=== PATIENT | male | born 1960 | race Caucasian/White ===

== ENCOUNTER → 2017-08-06 | Outpatient (CLI) | payer MEDICARE ==
--- NOTE | 2017-08-06 16:44 | US ---
EXAMINATION TYPE: US kidneys/renal and bladder DATE OF EXAM: 08/06/2017 COMPARISON: NONE CLINICAL HISTORY: Chronic cystitis N30.20. EXAM MEASUREMENTS: Right Kidney: 11.3 x 5.6 x 5.3 cm Left Kidney: 12.2 x 4.6 x 5.1 cm Right Kidney: No hydronephrosis or masses seen Left Kidney: No hydronephrosis or masses seen Bladder: wnl IMPRESSION: Negative retroperitoneal sonogram exam. No renal mass or obstruction. No evidence of a bladder mass.
== END | disposition home or self-care (01) ==
LOC: RADUSWWP 16:14
PROVIDERS: ATTEND Urology
DX: N30.20 Other chronic cystitis without hematuria (principal)
CPT/HCPCS: 76770

== ENCOUNTER 2019-02-17 04:44 | Emergency (ER) | payer MEDICARE, BC ==
[2019-02-17 04:59] VITALS: TEMP 98
[2019-02-17] MEDS ORDERED: SODIUM CHLORIDE 0.9% 1,000 ML IV STA (05:14)
--- NOTE | 2019-02-17 05:15 | ED ---
Abdominal Pain HPI - General Chief Complaint: Abdominal Pain Stated Complaint: Abd Pain Time Seen by Provider: 02/17/19 05:14 Source: patient Mode of arrival: ambulatory Limitations: no limitations - History of Present Illness Initial Comments: Domingo is a pleasant 4-year-old gentleman with a history of traumatic brain injury multiple years ago for which she had a temporary PEG tube which is subsequently been removed. Patient presents the emergency department today for evaluation of transient crampy like abdominal pain. Patient states he occasionally has abdominal pain but this morning he had crampy abdominal pain that lasted a couple of hours which made him worry him prompted him to come to the ER for further evaluation. Patient does admit that upon about UA anderson in the emergency department his abdominal pain is much better. His last bowel movement was around 2 AM today. - Related Data Allergies Allergy/AdvReac Type Severity Reaction Status Date / Time No Known Allergies Allergy Verified 02/17/19 05:56 Review of Systems ROS Statement: Those systems with pertinent positive or pertinent negative responses have been documented in the HPI. ROS Other: All systems not noted in ROS Statement are negative. Past Medical History History of Any Multi-Drug Resistant Organisms: None Reported Additional Past Surgical History / Comment(s): TBI shunt 06/08/07 Past Psychological History: Bipolar Smoking Status: Current every day smoker Past Alcohol Use History: None Reported Past Drug Use History: None Reported General Exam - General Exam Comments Initial Comments: Physical Exam GENERAL: Patient is well-developed and well-nourished. Patient is nontoxic and well- hydrated and is in no distress. HENT: Normocephalic, Atraumatic. EYES: PERRL, EOMI PULMONARY: Unlabored respirations. No audible rales rhonchi or wheezing was noted. CARDIOVASCULAR: There is a regular rate and rhythm without any murmurs gallops or rubs. ABDOMEN: Soft and nontender with normal bowel sounds. No tenderness to deep palpation Well-healed scar in the mid abdomen consistent with history of gastric feeding tube SKIN: Skin is clear with no lesions or rashes and otherwise unremarkable. : Deferred NEUROLOGIC: Patient is alert and oriented x3. Moving all extremities spontaneously MUSCULOSKELETAL: Normal extremities with adequate strength and full range of motion. No lower extremity swelling or edema. No calf tenderness. PSYCHIATRIC: Normal psychiatric evaluation. Limitations: no limitations Limitations: no limitations Course Vital Signs 02/17/19 02/17/1919 04:53 07:11 09:02 Temperature 98.0 F Pulse Rate 82 85 72 Respiratory 18 20 18 Rate Blood Pressure 173/88 145/88 143/87 O2 Sat by Pulse 98 98 97 Oximetry Medical Decision Making - Medical Decision Making Patient was seen and evaluated history was obtained from the patient Patient with a very diffuse abdominal pain throughout the morning this morning seems to be improving upon arrival Physical exam is unremarkable patient's in no acute distress abdomen is soft and minimally tender and non-peritoneal Labs and imaging were ordered Labs and x-ray were unremarkable Patient was reevaluated he was found to be sleeping comfortably in bed. I woke him up he reported his pain completely resolved he was feeling fine and is ready for discharge home. I advised him of his normal x-ray and lab findings are questions pertaining care were answered patient was discharged home in stable condition. - Lab Data Result diagrams: 02/17/19 05:34 02/17/19 05:34 Lab Results 02/17/19 02/17/19 02/17/19 Range/Units 05:34 05:34 07:06 WBC 7.6 (3.8-10.6) k/uL RBC 3.95 L (4.30-5.90) m/uL Hgb 13.3 (13.0-17.5) gm/dL Hct 40.4 (39.0-53.0) % MCV 102.4 H (80.0-100.0) fL MCH 33.8 (25.0-35.0) pg MCHC 33.0 (31.0-37.0) g/dL RDW 13.6 (11.5-15.5) % Plt Count 166 (150-450) k/uL Neutrophils % 68 % Lymphocytes % 23 % Monocytes % 6 % Eosinophils % 1 % Basophils % 0 % Neutrophils # 5.1 (1.3-7.7) k/uL Lymphocytes # 1.7 (1.0-4.8) k/uL Monocytes # 0.4 (0-1.0) k/uL Eosinophils # 0.1 (0-0.7) k/uL Basophils # 0.0 (0-0.2) k/uL Macrocytosis Slight Sodium 136 L (137-145) mmol/L Potassium 3.9 (3.5-5.1) mmol/L Chloride 104 (98-107) mmol/L Carbon Dioxide 25 (22-30) mmol/L Anion Gap 7 mmol/L BUN 11 (9-20) mg/dL Creatinine 0.86 (0.66-1.25) mg/dL Est GFR (CKD-EPI)AfAm >90 (>60 ml/min/1.73 sqM) Est GFR (CKD-EPI)NonAf >90 (>60 ml/min/1.73 sqM) Glucose 161 H (74-99) mg/dL Calcium 9.4 (8.4-10.2) mg/dL Total Bilirubin 0.4 (0.2-1.3) mg/dL AST 37 (17-59) U/L ALT 54 (21-72) U/L Alkaline Phosphatase 80 (38-126) U/L Total Protein 6.1 L (6.3-8.2) g/dL Albumin 3.5 (3.5-5.0) g/dL Amylase 40 (30-110) U/L Lipase 134 (23-300) U/L Urine Color Yellow Urine Appearance Clear (Clear) Urine pH 6.0 (5.0-8.0) Ur Specific [place] 1.030 (1.001-1.035) Urine Protein Negative (Negative) Urine Glucose (UA) 1+ (Negative) Urine Ketones Negative (Negative) Urine Blood Negative (Negative) Urine Nitrite Negative (Negative) Urine Bilirubin Negative (Negative) Urine Urobilinogen <2.0 (<2.0) mg/dL Ur Leukocyte Esterase Negative (Negative) Disposition Clinical Impression: Abdominal pain Disposition: HOME SELF-CARE Condition: Stable Instructions (If sedation given, give patient instructions): Abdominal Pain (ED) Is patient prescribed a controlled substance at d/c from ED?: No Referrals: None,Stated [Primary Care Provider] - 1-2 days
[2019-02-17] MEDS ORDERED: DICYCLOMINE 10 MG/ML 2 ML AMP IM STA (05:51)
[2019-02-17 06:04] LABS: Basophils % (A) 0 %; Eosinophils # (A) 0.1 k/uL (0-0.7); Eosinophils % (A) 1 %; HCT 40.4 % (39.0-53.0); HGB 13.3 gm/dL (13.0-17.5); Lymphocytes # (A) 1.7 k/uL (1.0-4.8); Lymphocytes % (A) 23 %; MCH 33.8 pg (25.0-35.0); MCV 102.4 fL (80.0-100.0); Macrocytosis Slight; Mean Platelet Volume 7.1; Monocytes # (A) 0.4 k/uL (0-1.0); Monocytes % (A) 6 %; Neutrophils # (A) 5.1 k/uL (1.3-7.7); Neutrophils % (A) 68 %; Platelet Count 166 k/uL (150-450); RBC 3.95 m/uL (4.30-5.90); RDW 13.6 % (11.5-15.5); WBC 7.6 k/uL (3.8-10.6)
--- NOTE | 2019-02-17 06:06 | XR ---
EXAM: XR Abdomen, 2 Views CLINICAL HISTORY: Abdominal pain TECHNIQUE: Frontal view of the abdomen/pelvis with upright view of the abdomen. COMPARISON: No relevant prior studies available. FINDINGS: Lower thorax: Lung bases are grossly clear. Intraperitoneal space: No free air. Gastrointestinal tract: Nonspecific bowel gas pattern without evidence of obstruction. Bones/joints: Unremarkable. Tubes, lines and devices: Distal end of probable METHODS SPECIALIST shunt is seen curled within the right lower quadrant with tip extending into the pelvis. IMPRESSION: Nonspecific bowel gas pattern without evidence of obstruction.
[2019-02-17 06:19] LABS: ALT 54 U/L (21-72); AST 37 U/L (17-59); Albumin 3.5 g/dL (3.5-5.0); Alkaline Phosphatase 80 U/L (38-126); Amylase 40 U/L (30-110); Anion Gap 7 mmol/L; Blood Urea Nitrogen 11 mg/dL (9-20); Calcium 9.4 mg/dL (8.4-10.2); Carbon Dioxide 25 mmol/L (22-30); Chloride 104 mmol/L (98-107); Glucose 161 mg/dL (74-99); Lipase 134 U/L (23-300); Potassium 3.9 mmol/L (3.5-5.1); Sodium 136 mmol/L (137-145); Total Bilirubin 0.4 mg/dL (0.2-1.3); Total Protein 6.1 g/dL (6.3-8.2)
[2019-02-17 09:04] VITALS: BP 143/87; PULSE 72; RESP 18
[2019-02-17 09:27] LABS: Appearance,Urine Clear (Clear); Color,Urine Yellow
[2019-02-17 09:28] LABS: Bilirubin,Urine Negative (Negative); Glucose,Urine (UA) 1+ (Negative); Ketones,Urine Negative (Negative); Protein,Urine Negative (Negative)
[2019-02-17 09:29] LABS: Blood,Urine Negative (Negative); Leukocyte Esterase,Urine Negative (Negative); Nitrite,Urine Negative (Negative); Urobilinogen,Urine <2.0 mg/dL (<2.0)
== END 2019-02-17 09:02 | disposition home or self-care (01) ==
LOC: EC 04:44
DX: R10.84 Generalized abdominal pain (principal); F17.200 Nicotine dependence, unspecified, uncomplicated; Z87.820 Personal history of traumatic brain injury; Z98.2 Presence of cerebrospinal fluid drainage device
CPT/HCPCS: 36415; 80053; 82150; 83690; 85025; 81003; 74018; 99284; 96360; 96372; J0500

== ENCOUNTER 2019-11-10 18:50 | Emergency (ER) | payer MEDICARE, BC, OTHER ==
[2019-11-10 19:05] VITALS: RESP 18; TEMP 98
[2019-11-10 19:12] LABS: Glucose,Whole Blood 322 mg/dL (75-99)
--- NOTE | 2019-11-10 19:16 | ED ---
Recheck HPI - General Chief Complaint: Recheck/Abnormal Lab/Rx Stated Complaint: hyperglycemia Time Seen by Provider: 11/10/19 19:08 Source: patient Mode of arrival: ambulatory Limitations: no limitations - History of Present Illness Initial Comments: 59-year-old male presenting for elevated blood glucose on routine labs otherwise no complaints.Patient denies any recent fever, chills, shortness of breath, chest pain, back pain, abdominal pain, nausea or vomiting, numbness or tingling, dysuria or hematuria, constipation or diarrhea, headaches or visual changes, or any other complaints. Patient states she was supposed to be started on metformin however there was a mixup at his primary care provider office and he never received a prescription in the mail. Patient denies increased thirst or urination. Patient appears well upon arrival - Related Data Previous Rx's Medication Instructions Recorded metFORMIN HCL 500 mg PO BID 7 Days #14 tablet 11/10/19 Allergies Allergy/AdvReac Type Severity Reaction Status Date / Time No Known Allergies Allergy Verified 11/10/19 19:01 Review of Systems ROS Statement: Those systems with pertinent positive or pertinent negative responses have been documented in the HPI. ROS Other: All systems not noted in ROS Statement are negative. Past Medical History Past Medical History: No Reported History History of Any Multi-Drug Resistant Organisms: None Reported Past Surgical History: No Surgical Hx Reported Additional Past Surgical History / Comment(s): TBI shunt 06/08/07 Past Psychological History: Bipolar Smoking Status: Current every day smoker Past Alcohol Use History: None Reported Past Drug Use History: None Reported General Exam - General Exam Comments Initial Comments: General: The patient is awake and alert, in no distress, and does not appear acutely ill. Eye: Pupils are equal, round and reactive to light, extra-ocular movements are intact. No nystagmus. There is normal conjunctiva bilaterally. No signs of icterus. Ears, nose, mouth and throat: There are moist mucous membranes and no oral lesions. Neck: The neck is supple, there is no tenderness or JVD. Cardiovascular: There is a regular rate and rhythm. No murmur, rub or gallop is appreciated. Respiratory: Lungs are clear to auscultation, respirations are non-labored, breath sounds are equal. No wheezes, stridor, rales, or rhonchi. Gastrointestinal: Soft, non-distended, non-tender abdomen without masses or organomegaly noted. There is no rebound or guarding present. Musculoskeletal: Normal ROM, no tenderness. Strength 5/5. Sensation intact. Radial pulses equal bilaterally 2+. Neurological: A&O x 3. CN II-XII intact grossly, There are no obvious motor or sensory deficits. Coordination appears grossly intact. Speech is normal. Skin: Skin is warm and dry and no rashes or lesions are noted. Psychiatric: Cooperative, appropriate mood & affect, normal judgment. Limitations: no limitations Course Vital Signs 11/10/19 11/10/19 19:02 21:51 Temperature 98 F Pulse Rate 106 H 87 Respiratory 18 18 Rate Blood Pressure 136/82 142/84 O2 Sat by Pulse 94 L 96 Oximetry Medical Decision Making - Medical Decision Making 59-year-old male presenting for evaluation of elevated blood glucose. No evidence of DKA or electrolyte derangements no anion gap elevation. Patient has +4 glucose trace ketone. Acetone (-). Glucose downtrending. Given RX for metformin educated on diabetic diet. Patient is to f/u with PCP within one week. Discharge appearing well after discussing case with Dr. Quintana - Lab Data Result diagrams: 11/10/19 19:40 11/10/19 19:40 Lab Results 11/10/19 11/10/19 11/10/19 Range/Units 19:10 19:40 19:40 WBC 7.9 (3.8-10.6) k/uL RBC 4.17 L (4.30-5.90) m/uL Hgb 14.6 (13.0-17.5) gm/dL Hct 41.0 (39.0-53.0) % MCV 98.2 (80.0-100.0) fL MCH 34.9 (25.0-35.0) pg MCHC 35.6 (31.0-37.0) g/dL RDW 13.1 (11.5-15.5) % Plt Count 156 (150-450) k/uL Neutrophils % 58 % Lymphocytes % 33 % Monocytes % 7 % Eosinophils % 1 % Basophils % 1 % Neutrophils # 4.6 (1.3-7.7) k/uL Lymphocytes # 2.6 (1.0-4.8) k/uL Monocytes # 0.5 (0-1.0) k/uL Eosinophils # 0.1 (0-0.7) k/uL Basophils # 0.1 (0-0.2) k/uL Sodium 139 (137-145) mmol/L Potassium 4.3 (3.5-5.1) mmol/L Chloride 104 (98-107) mmol/L Carbon Dioxide 24 (22-30) mmol/L Anion Gap 11 mmol/L BUN 10 (9-20) mg/dL Creatinine 0.89 (0.66-1.25) mg/dL Est GFR (CKD-EPI)AfAm >90 (>60 ml/min/1.73 sqM) Est GFR (CKD-EPI)NonAf >90 (>60 ml/min/1.73 sqM) Glucose 301 H (74-99) mg/dL POC Glucose (mg/dL) 322 H (75-99) mg/dL POC Glu Pillowcase Maker Sameer Juárez Calcium 9.2 (8.4-10.2) mg/dL Total Bilirubin 0.6 (0.2-1.3) mg/dL AST 34 (17-59) U/L ALT 31 (4-49) U/L Alkaline Phosphatase 78 (38-126) U/L Total Protein 7.2 (6.3-8.2) g/dL Albumin 4.1 (3.5-5.0) g/dL Urine Color Urine Appearance (Clear) Urine pH (5.0-8.0) Ur Specific [place] (1.001-1.035) Urine Protein (Negative) Urine Glucose (UA) (Negative) Urine Ketones (Negative) Urine Blood (Negative) Urine Nitrite (Negative) Urine Bilirubin (Negative) Urine Urobilinogen (<2.0) mg/dL Ur Leukocyte Esterase (Negative) Acetone, Qual Negative (Negative) 11/10/19 11/10/19 Range/Units 21:18 21:23 WBC (3.8-10.6) k/uL RBC (4.30-5.90) m/uL Hgb (13.0-17.5) gm/dL Hct (39.0-53.0) % MCV (80.0-100.0) fL MCH (25.0-35.0) pg MCHC (31.0-37.0) g/dL RDW (11.5-15.5) % Plt Count (150-450) k/uL Neutrophils % % Lymphocytes % % Monocytes % % Eosinophils % % Basophils % % Neutrophils # (1.3-7.7) k/uL Lymphocytes # (1.0-4.8) k/uL Monocytes # (0-1.0) k/uL Eosinophils # (0-0.7) k/uL Basophils # (0-0.2) k/uL Sodium (137-145) mmol/L Potassium (3.5-5.1) mmol/L Chloride (98-107) mmol/L Carbon Dioxide (22-30) mmol/L Anion Gap mmol/L BUN (9-20) mg/dL Creatinine (0.66-1.25) mg/dL Est GFR (CKD-EPI)AfAm (>60 ml/min/1.73 sqM) Est GFR (CKD-EPI)NonAf (>60 ml/min/1.73 sqM) Glucose (74-99) mg/dL POC Glucose (mg/dL) 202 H (75-99) mg/dL POC Glu Pillowcase Maker ID Aditi Miranda Calcium (8.4-10.2) mg/dL Total Bilirubin (0.2-1.3) mg/dL AST (17-59) U/L ALT (4-49) U/L Alkaline Phosphatase (38-126) U/L Total Protein (6.3-8.2) g/dL Albumin (3.5-5.0) g/dL Urine Color Yellow Urine Appearance Clear (Clear) Urine pH 6.5 (5.0-8.0) Ur Specific [place] 1.032 (1.001-1.035) Urine Protein Negative (Negative) Urine Glucose (UA) 4+ H (Negative) Urine Ketones Trace H (Negative) Urine Blood Negative (Negative) Urine Nitrite Negative (Negative) Urine Bilirubin Negative (Negative) Urine Urobilinogen <2.0 (<2.0) mg/dL Ur Leukocyte Esterase Negative (Negative) Acetone, Qual (Negative) Disposition Clinical Impression: Blood glucose elevated Disposition: HOME SELF-CARE Condition: Good Instructions (If sedation given, give patient instructions): Type 2 Diabetes in Adults: New Diagnosis (DC), Diabetes and Nutrition (ED) Additional Instructions: Please use medication as discussed. Please follow-up with family doctor in the next 2 days, for further management of your diabetes. Please return to emergency room if the symptoms increase or worsen or for any other concerns. Prescriptions: metFORMIN HCL 500 mg PO BID 7 Days #14 tablet Is patient prescribed a controlled substance at d/c from ED?: No Referrals: [facility],Clinic [Primary Care Provider] - 1-2 days Time of Disposition: 20:19
[2019-11-10] MEDS ORDERED: SODIUM CHLORIDE 0.9% 500 ML 500 ML IV ONE (19:22)
[2019-11-10 19:57] LABS: Basophils # (A) 0.1 k/uL (0-0.2); Basophils % (A) 1 %; Eosinophils # (A) 0.1 k/uL (0-0.7); Eosinophils % (A) 1 %; HGB 14.6 gm/dL (13.0-17.5); Lymphocytes # (A) 2.6 k/uL (1.0-4.8); Lymphocytes % (A) 33 %; MCH 34.9 pg (25.0-35.0); MCHC 35.6 g/dL (31.0-37.0); MCV 98.2 fL (80.0-100.0); Mean Platelet Volume 7.4; Monocytes # (A) 0.5 k/uL (0-1.0); Monocytes % (A) 7 %; Neutrophils # (A) 4.6 k/uL (1.3-7.7); Neutrophils % (A) 58 %; Platelet Count 156 k/uL (150-450); RBC 4.17 m/uL (4.30-5.90); RDW 13.1 % (11.5-15.5); WBC 7.9 k/uL (3.8-10.6)
[2019-11-10 20:04] LABS: ALT 31 U/L (4-49); AST 34 U/L (17-59); African American GFR (CKD) >90 (>60 ml/min/1.73 sqM); Albumin 4.1 g/dL (3.5-5.0); Alkaline Phosphatase 78 U/L (38-126); Anion Gap 11 mmol/L; Blood Urea Nitrogen 10 mg/dL (9-20); Calcium 9.2 mg/dL (8.4-10.2); Carbon Dioxide 24 mmol/L (22-30); Chloride 104 mmol/L (98-107); Glucose 301 mg/dL (74-99); Non-African American GFR(CKD) >90 (>60 ml/min/1.73 sqM); Potassium 4.3 mmol/L (3.5-5.1); Sodium 139 mmol/L (137-145); Total Bilirubin 0.6 mg/dL (0.2-1.3); Total Protein 7.2 g/dL (6.3-8.2)
[2019-11-10] MEDS ORDERED: INSULIN REGULAR 100 UNIT/ML VIAL SQ ONE (20:08)
[2019-11-10 21:25] LABS: Glucose,Whole Blood 202 mg/dL (75-99)
[2019-11-10 21:28] LABS: Appearance,Urine Clear (Clear); Bilirubin,Urine Negative (Negative); Blood,Urine Negative (Negative); Color,Urine Yellow; Glucose,Urine (UA) 4+ (Negative); Ketones,Urine Trace (Negative); Leukocyte Esterase,Urine Negative (Negative); Nitrite,Urine Negative (Negative); PH, Urine 6.5 (5.0-8.0); Protein,Urine Negative (Negative); Specific Gravity,Urine 1.032 (1.001-1.035); Urobilinogen,Urine <2.0 mg/dL (<2.0)
[2019-11-10 21:52] VITALS: BP 142/84; PULSE 87
== END 2019-11-10 21:52 | disposition home or self-care (01) ==
LOC: EC 18:50
DX: R73.9 Hyperglycemia, unspecified (principal); F17.200 Nicotine dependence, unspecified, uncomplicated
CPT/HCPCS: 36415; 80053; 81003; 82009; 85025; 99283

== ENCOUNTER 2020-02-16 15:52 | Emergency (ER) | payer OTHER, MEDICARE, BC ==
[2020-02-16] MEDS ORDERED: SODIUM CHLORIDE 0.9% 1,000 ML IV STA (15:59)
--- NOTE | 2020-02-16 16:07 | ED ---
General Adult HPI - General Chief complaint: Urogenital Stated complaint: rt testicle enlarged Time Seen by Provider: 02/16/20 15:59 Source: patient Limitations: no limitations - History of Present Illness Initial comments: Dictation was produced using Wh[employer] dictation software. please excuse any grammatical, word or spelling errors. Chief Complaint: 59-year-old male with past medical history of diabetes dyslipidemia hydrocephalus presents with right testicular pain. History of Present Illness: 59-year-old male presents today with right testicular pain. Patient was seen at the [facility] where he was initially evaluated. A urine sample that was concerning for urinary tract infection. Patient had testicular pain and was instructed to come to the emergency department for an ultrasound. Patient states his symptoms began today. He has been more sexually active than usual. Denies any fever, constitutional symptoms. No abdominal pain. No nausea vomiting. States that his whole testicle hurts. The ROS documented in this emergency department record has been reviewed and confirmed by me. Those systems with pertinent positive or negative responses have been documented in the HPI. All other systems are other negative and/or noncontributory. PHYSICAL EXAM: General Impression: Alert and oriented x3, not in acute distress HEENT: Normocephalic atraumatic, extra-ocular movements intact, pupils equal and reactive to light bilaterally, mucous membranes moist. Cardiovascular: Heart regular rate and rhythm, S1&S2 audible, no murmurs, rubs or gallops Chest: Lungs clear to auscultation bilaterally, no rhonchi, no wheeze, no rales Abdomen: Bowel sounds present, abdomen soft, non-tender, non-distended, no organomegaly Musculoskeletal: Pulses present and equal in all extremities, no peripheral edema Motor: no focal deficits noted Neurological: CN II-XII grossly intact, no focal motor or sensory deficits noted Skin: Intact with no visualized rashes Psych: Normal affect and mood exam: Tender right testicle, negative Prehn sign, erythematous scrotum ED course: 59-year-old male clinical presentation concerning for orchitis. Upon arrival shows heart rate of 125, rest of vital signs within acceptable limits. Patient had urinalysis performed at [facility] showing urinary tract infection. Ultrasound of the scrotum shows findings to suggest epididymal orchitis. Patient given dose of Septra 1 g for concern of urinary tract infection. Patient does report sexual activity. Patient also given Zithromax 1 g for possible sexual transmitted disease. Patient also given prescription for Levaquin to take for 10 days. His cussed with patient to refrain from any sexual activity for the time being while he is symptomatic. Advised follow-up with his primary care physician. - Related Data Previous Rx's Medication Instructions Recorded metFORMIN HCL 500 mg PO BID 7 Days #14 tablet 11/10/19 Levofloxacin [Levaquin] 500 mg PO DAILY 10 Days #10 tab 02/16/20 Allergies Allergy/AdvReac Type Severity Reaction Status Date / Time No Known Allergies Allergy Verified 02/16/20 15:54 Review of Systems ROS Statement: Those systems with pertinent positive or pertinent negative responses have been documented in the HPI. ROS Other: All systems not noted in ROS Statement are negative. Past Medical History Past Medical History: Diabetes Mellitus, Hyperlipidemia Additional Past Medical History / Comment(s): HX closed head injury with hydrocephalus History of Any Multi-Drug Resistant Organisms: None Reported Past Surgical History: No Surgical Hx Reported Additional Past Surgical History / Comment(s): TBI shunt 06/08/07 Past Psychological History: Bipolar Smoking Status: Current every day smoker Past Alcohol Use History: None Reported Past Drug Use History: None Reported General Exam Limitations: no limitations Course Vital Signs 02/16/20 15:54 Temperature 98.7 F Pulse Rate 125 H Respiratory 18 Rate Blood Pressure 133/86 O2 Sat by Pulse 96 Oximetry Disposition Clinical Impression: Orchitis Disposition: HOME SELF-CARE Condition: Good Instructions (If sedation given, give patient instructions): Urinary Tract Infection in Men (ED) Prescriptions: Levofloxacin [Levaquin] 500 mg PO DAILY 10 Days #10 tab Is patient prescribed a controlled substance at d/c from ED?: No Referrals: Marcos Hector, BRANDON [REFERRING] - 1-2 days Time of Disposition: 17:44
[2020-02-16] MEDS ORDERED: cefTRIAXone IN SWFI 1,000 MG/10 ML SYRINGE IVP STA (16:09)
--- NOTE | 2020-02-16 17:30 | US ---
EXAMINATION TYPE: US scrotum with doppler. Grayscale and color Doppler Duplex imaging performed of t he scrotum. DATE OF EXAM: 02/16/2020 COMPARISON: NONE CLINICAL HISTORY: testicular pain. EXAM MEASUREMENTS: TESTICLES: Right Testicle: 4.0 x 2.2 x 3.1 cm Left Testicle: 4.2 x 2.2x 2.8 cm EPIDIDYMIS HEAD: Right Epididymis: 0.9 cm Left Epididymis: 0.9 cm Doppler performed to assess for testicular vascularity; good bilateral color flow and waveforms are s een. Presence of hydroceles: no Presence of varicoceles: no Color images show marked vascularity to the right epididymis and to lesser degree the right testicle versus opposite left side documented on comparison image midway through the study. IMPRESSION: Probable right-sided acute epididymitis/orchitis. Correlate clinically if this is the gabe e of pain as was not specified.
[2020-02-16] MEDS ORDERED: AZITHROMYCIN 500 MG TAB PO STA (17:41)
[2020-02-16] MEDS ORDERED: cefTRIAXone 250 MG VIAL IM STA (17:41)
[2020-02-16 18:01] VITALS: BP 125/70; PULSE 104; RESP 20; TEMP 98.5
== END 2020-02-16 17:59 | disposition home or self-care (01) ==
LOC: EC 15:52
DX: N45.2 Orchitis (principal); F17.200 Nicotine dependence, unspecified, uncomplicated; Z53.8 Procedure and treatment not carried out for other reasons
CPT/HCPCS: 93975; 76870; 99284; 96374; 96361; J0696

== ENCOUNTER → 2021-05-09 | Outpatient (CLI) | payer MEDICARE, OTHER ==
--- NOTE | 2021-05-09 11:05 | XR ---
EXAMINATION TYPE: XR KUB DATE OF EXAM: 05/09/2021 COMPARISON: NONE HISTORY: Back pain TECHNIQUE: One view abdominal series FINDINGS: The osseous structures are intact. The bowel gas pattern is nonspecific. Peritoneal dialysis cathete r seen with the tip coiled overlying the right iliac crest. Arthropathy of the hips. Hypertrophic patricia nge of the spine. Punctate calcifications in the pelvis too small to characterize. IMPRESSION: 1. Nonspecific abdomen
== END | disposition home or self-care (01) ==
LOC: RADXRMAIN 09:35
PROVIDERS: ATTEND Urology
DX: M54.5 Low back pain (principal)
CPT/HCPCS: 74018

== ENCOUNTER 2021-09-26 03:09 | Emergency (ER) | payer OTHER, MEDICARE ==
[2021-09-26 03:20] VITALS: RESP 18; TEMP 98.1
[2021-09-26] MEDS ORDERED: TETRACAINE 0.5% OPHTH (PF) DROPS 4 ML BTL BOTH EYES ONE (03:35)
[2021-09-26] MEDS ORDERED: FLUORESCEIN STRIPS 1 MG STRIP BOTH EYES ONE (03:59)
--- NOTE | 2021-09-26 04:12 | ED ---
General Adult HPI - General Chief complaint: Allergic Reaction Stated complaint: Eye Problems Time Seen by Provider: 09/26/21 03:23 Source: patient, EMS Mode of arrival: EMS Limitations: no limitations - History of Present Illness Initial comments: This patient is a 61-year-old man who presents with bilateral eye irritation. Patient states he had worn hollowing contact lenses on the day prior. He had gone to sleep with those in and then when he awoke he was experiencing severe burning in both eyes. He did take contact lenses out but the symptoms have not subsided yet. Patient does not usually work contact lenses. -: hour(s) Location: eyes Radiation: non-radiation Quality: burning Consistency: constant Improves with: none Worsens with: none Associated Symptoms: denies other symptoms Treatments Prior to Arrival: none - Related Data Previous Rx's Medication Instructions Recorded metFORMIN HCL 500 mg PO BID 7 Days #14 tablet 11/10/19 Levofloxacin [Levaquin] 500 mg PO DAILY 10 Days #10 tab 02/16/20 Allergies Allergy/AdvReac Type Severity Reaction Status Date / Time No Known Allergies Allergy Verified 02/16/20 15:54 Review of Systems ROS Statement: Those systems with pertinent positive or pertinent negative responses have been documented in the HPI. ROS Other: All systems not noted in ROS Statement are negative. Constitutional: Denies: fever, chills Eyes: Reports: eye pain Respiratory: Denies: cough, dyspnea Cardiovascular: Denies: chest pain, palpitations Skin: Denies: rash Neurological: Denies: headache Past Medical History Past Medical History: Diabetes Mellitus, Hyperlipidemia Additional Past Medical History / Comment(s): HX closed head injury with hydrocephalus History of Any Multi-Drug Resistant Organisms: None Reported Past Surgical History: No Surgical Hx Reported Additional Past Surgical History / Comment(s): TBI shunt 06/08/07 Past Psychological History: Bipolar Smoking Status: Current every day smoker Past Alcohol Use History: Occasional Past Drug Use History: Marijuana General Exam Limitations: no limitations General appearance: alert, in no apparent distress Head exam: Present: atraumatic Eye exam: Present: normal appearance, PERRL, EOMI. Absent: scleral icterus, conjunctival injection ENT exam: Present: normal oropharynx Neck exam: Present: normal inspection, full ROM Neurological exam: Present: alert Skin exam: Present: warm, dry, intact, normal color. Absent: rash Course Vital Signs 09/26/21 03:14 Temperature 98.1 F Pulse Rate 107 H Respiratory 18 Rate Blood Pressure 148/106 O2 Sat by Pulse 97 Oximetry Disposition Clinical Impression: Corneal abrasion of both eyes due to contact lens Disposition: HOME SELF-CARE Condition: Fair Instructions (If sedation given, give patient instructions): Corneal Abrasion (ED) Is patient prescribed a controlled substance at d/c from ED?: No Referrals: [facility],Clinic [Primary Care Provider] - 1-2 days Jesse Sarabia MD [STAFF PHYSICIAN] - 1-2 days
[2021-09-26] MEDS ORDERED: ERYTHROMYCIN 5 MG/GM OPHTH OINT 3.5 GM TUBE BOTH EYES ONE (04:30)
[2021-09-26 05:19] VITALS: BP 142/99; PULSE 89
== END 2021-09-26 05:19 | disposition home or self-care (01) ==
LOC: EC 03:09
DX: H18.823 Corneal disorder due to contact lens, bilateral (principal); E11.9 Type 2 diabetes mellitus without complications; E78.5 Hyperlipidemia, unspecified; F17.200 Nicotine dependence, unspecified, uncomplicated; F12.90 Cannabis use, unspecified, uncomplicated; Z79.84 Long term (current) use of oral hypoglycemic drugs
CPT/HCPCS: 99283